=== PATIENT | female | born 1995 | race Native Hawaiian/Other Pacific Islander ===

== ENCOUNTER 2020-11-27 19:30 | Emergency (ER) | payer OTHER ==
[2020-11-27 20:16] VITALS: BP 102/73; PULSE 43; RESP 16; TEMP 98.1
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
--- NOTE | 2020-11-27 20:56 | XR ---
RESULT: HISTORY: pain TECHNIQUE: 2 views of the sternum were obtained. COMPARISON: None. FINDINGS: There is no acute displaced fracture or dislocation of the visualized sternum. The visualized joint s paces are preserved. IMPRESSION: No displaced fracture.
== END 2020-11-27 21:30 | disposition home or self-care (01) ==
LOC: EC 19:30
DX: M67.432 Ganglion, left wrist (principal); R07.89 Other chest pain
CPT/HCPCS: 71046; 71120; 93005; 99285